=== PATIENT | male | born 1975 | race Caucasian/White ===

== ENCOUNTER 2017-11-24 00:21 | Inpatient (IN) | payer BC ==
[2017-11-24 01:37] LABS: #Basophils 0.1 thou/uL (0.0-0.2); #Eosinphils 0.1 thou/uL (0.0-0.7); #Lymphocytes 2.4 thou/uL (1.20-3.40); #Monocytes 0.8 thou/uL (0.11-0.59); #Neutrophils 10.9 thou/uL (1.40-6.50); %Basophils 0.6 % (0.0-1.0); %Eosinophils 0.4 % (0.0-10.0); %Lymphocytes 16.5 % (21.0-51.0); %Monocytes 5.9 % (0.0-10.0); %Neutrophils 76.6 % (42.0-75.0); Hemoglobin 15.5 g/dL (14.0-18.0); Mean Corpuscular HGB CONC 32.6 g/dL (32.0-36.0); Platelet Count 350 thou/uL (130-400); RBC Distribution Width 11.6 % (11.5-14.5); Red Blood Cell (RBC) Count 5.02 mill/uL (4.70-6.10); White Blood Cell (WBC) Count 14.2 thou/uL (4.8-10.8)
--- NOTE | 2017-11-24 01:51 | PDOC.FPRHP ---
- History of Present Illness Chief Complaint: DKA History of Present Illness: Mr Rush is a 41yo male with pmh of DMI presenting from [place] ED with DKA. He was seen by a ASSOCIATE PROFESSOR OF PHYSICS at his PCPs office on Tuesday for sore throat and was diagnosed with strep throat by throat swab. He was given amoxicillin. Later developed fever of 101. Began having fatigue, FRANCIS, vision changes, nausea, 1 episode of vomiting, decreased urination and fast breathing. His friend who is an RN recognized his quick labored breathing and recommended he seek medical attention. He uses Novolog 25-30U TID before meals, does not use long acting insulin. Blood sugar usually runs 200-250. Missed one dose of insulin yesterday but reports compliance otherwise. Has never been hospitalized for DKA before. Multiple family members with DMI. ED Course: [place] ED: 3L NS, Vanc 1g, Zosyn 4.5g, Novolin 8U [facility] ED: insulin gtt - Allergies/Adverse Reactions Allergies Allergy/AdvReac Type Severity Reaction Status Date / Time No Known Drug Allergies Allergy Verified 11/24/17 02:19 - Home Medications Medication Instructions Recorded Confirmed Type Insulin Aspart [Novolog Flexpen] 25 units SQ TID 11/24/17 11/24/17 History - History PMHx: DMI PSHx: None FHx: DMI- father, grandfather, uncle Social: Uses chewing tobacco, occasional alcohol use. denies smoking or drug use. - Review of Systems General: reports: fever/chills, fatigue. denies: weight/appetite/sleep changes Eyes: reports: vision changes. denies: eye pain ENT: denies: nasal congestion, rhinorrhea Respiratory: denies: cough, congestion, shortness of breath Cardiovascular: denies: chest pain, palpitation Gastrointestinal: reports: nausea, vomiting. denies: diarrhea, constipation, abdominal pain Genitourinary: reports: other (decreased urination). denies: polyuria Skin: denies: rashes, lesions Musculoskeletal: denies: pain, stiffness Neurological: denies: numbness, syncope, weakness - Vital signs BP: 143/91 HR: 99 RR: 18 Tmax: 98 Pox: 100% on RA Wt: 88.4kg - Physical Exam Constitutional: NAD, awake, alert and oriented, well developed HEENT: normocephalic and atraumatic, PERRLA, oropharynx clear (Pt has chewing tobacco in. Dry MM. Erythematous pharynx) Neck: supple, trachea midline, no LAD Heart: RRR, no murmurs/rubs/gallops Lungs: CTAB, no respiratory distress, no wheezing Abdomen: soft, non-tender, bowel sounds present Musculoskeletal: normal structure, normal tone Neurological: no focal deficit Skin: no rash/lesions, other (delayed cap refill) Psychiatric: normal mood and affect, good judgment and insight, intact recent and remote memory FMR H&P: Results - Labs Result Diagrams: 11/24/17 01:25 11/24/17 03:48 Lab results: WBC 14.2 thou/uL (4.8-10.8) H 11/24/17 01:25 Hgb 15.5 g/dL (14.0-18.0) 11/24/17 01:25 Hct 47.7 % (42.0-52.0) 11/24/17 01:25 MCV 95.0 fL (78.0-98.0) 11/24/17 01:25 Plt Count 350 thou/uL (130-400) 11/24/17 01:25 Neutrophils % 76.6 % (42.0-75.0) H 11/24/17 01:25 - EKG Interpretation EKG: Sinus tachycardia with unifocal PVCs FMR H&P: A/P - Problem List (1) DKA (diabetic ketoacidoses) Current Visit: Yes Status: Acute Code(s): E13.10 - OTH DIABETES MELLITUS WITH KETOACIDOSIS WITHOUT COMA (2) Type 1 diabetes mellitus Current Visit: Yes Status: Acute (3) Tobacco abuse Current Visit: Yes Status: Chronic Code(s): Z72.0 - TOBACCO USE - Plan DKA - Likely 2/2 infection and missed dose insulin - Initial Anion gap of 30, repeat labs 22 - Beta-hydroxybutyrate: 7.26 - DKA protocol, continue insulin gtt until anion gap has closed - Lactic acid elevated 2.7, will repeat this and Phos with next labs - q4h BMP - Was only on short acting insulin prior to admission, will need to adjust home meds by start long acting insulin prior to discharge - Diabetes education prior to d/c - NPO - Admit to IMCU Dehydration 2/2 DKA - IVF per DKA protocol - Monitor Urine output with strict I&Os Strep Pharyngitis - Pt reports positive rapid strep at PCP office treated with Amoxicillin - Vanc & Zosyn started at outside ED - Will continue Zosyn and d/c Vanc - Blood cultures pending Hyperkalemia - Secondary to DKA - Will replace to maintain K between 4-5 Leukocytosis - Likely acute reaction to DKA DAWOOD - Continue IVF - Continue to monitor DMI - Manage as above Tobacco Abuse - Encourage cessation Code Status: FULL DVT ppx: lovenox FMR H&P: Upper Level - Pertinent history 41 y/o M presents as a TXR from [place] ER for evaluation of fast breathing that started yesterday and has been worsening. Reportedly seen by PCP w/ positive strep swab and started on Amoxicillin at this time. Pt states he spoke with a friend who is an RN who urged him to go to the ER for futher evaluation. Pt reports hx of T1DM on novolog 25-30 U TID-AC w/ recent BG running 150-250s at home. Reports that he developed some nausea and vomiting earlier today before coming in to the ER, but denies any significant polyuria or abdominal pain at this time. At [place] ER, patient was found to have an AGMA w/ significant ketonuria concerning for likely DKA. He was started on insulin drip at 8 mg/hr and given 3L of NS. He was also started on Vancomycin and Zosyn for empiric coverage of his strep pharyngitis which was felt to be the likely etiology of his DKA. Pt reports only missing one dose of insulin earlier today, but w/ sxs starting before this time. Denies any prior episodes of DKA. Denies any sore throat or fevers. - Pertinent findings BP 143/91 P: 99 RR 18 TMax: 98.0 DegF OsSat 100% on RA WBC 17.1 Hgb 17.3 Na 137 K 4.1 Cl - 107 CO2 - <8 BUN 11 Cr 1.25 Gluc 212 Phos 5.4 B-hb 7.26 U/A - Tr blood, >80 ketones, 30 protein CXR NAD GEN: NAD, resting in bed comfortably HEENT: Dry MM, poor dentition, normocephalic CARDS: Tachycardic, no murmur, rubs or gallops PULM: CTA-B/L, no wheezes, rales or rhonci GI: BSx4, soft, non-TTP, no rigidity or rebound tenderness NEURO: CN 2-12 intact b/l w/o focal deficits Skin Increased skin turgor and increased cap refill >2 seconds - Plan Date/Time: 11/24/17 0151 IMalathi MD, have evaluated this patient and agree with findings/plan as outlined by diversity intern resident. Pertinent changes/additions are listed here. 41 year old M w/: 1) Diabetic Ketoacidosis - Pt w/ repeat labs w/ stable potassium after being on insulin gtt at 8 mg/Hr for approx. 4-5 hours. Anion gap remains elevated at 22 and Serum bicarb now < 8. Will plan to admit to IMCU on DKA protocol w/ patient NPO and q4 hr BMPs to monitor for resolution of DKA w/ closed anion gap (<12) and serum bicarbonate 16 -18. Once this is achieved, patient will be given SQ long acting insulin and allowed to eat a CC diet. Insulin gtt will subsequently be turned off in 1-2 hours after this. Patient confirmed he has [employer] insurance and will plan to transition him back on to long acting insulin during this hospitalization for improved control of his T1DM in hopes to prevent future episodes of DKA. - Serum potassium 4.1. Will give 20 mEq w/ each liter of IVF to maintain serum K between 4-5 - Repeat serum glucose 212, patient will likely need to be transitioned to D5NS to maintain BG levels while correcting insulin deficit - Etiology likely combination of infection w/ some medication non-compliance - Will consult case management for diabetes education and OOH resources - Lactic acid elevated at 2.7, will plan to repeat on next set of labs - Repeat Phos 2) Strep Pharyngitis - Reported positive rapid strep in the outpatient setting - Likely contributing to patient developing #1. Will continue w/ Zosyn started in outside ER in for strep coverage. D/C Vancomycin as I do not feel staph is a likely etiology of patients pharyngitis w/ positive rapid strep in the outpatient setting - Will obtain blood cultures to r/o presence of bacteremia in the setting of leukocytosis and elevated lactic acid. However, these are likely due to stress response and dehydration from #1. 3) Likely DAWOOD - Cont. w/ IVF resuscitation. Unsure of baseline as patient does not have prior labs to reference. No endorses hx of renal disease. Will cont. to monitor. 4) Moderate dehydration - IVF per #1, will monitor fluid status w/ strict I/Os Code Status: Full Code LOS: >2 midnights Diet: NPO Assessment and Plan discussed w/ Dr. Jaleel Calixto who is in agreement Attending Addendum - Attending Addendum Date/Time: 11/24/17 0130 I personally evaluated the patient and discussed the management with Dr. Lane /Dayanna. I agree with the History, Examination, Assessment and Plan documented above with any addition or exceptions noted below. Please see dictated H&P for further details.
[2017-11-24 01:58] LABS: ALT (SGPT) 8 U/L (8-55); AST (SGOT) 7 U/L (5-34); Alkaline Phosphatase 83 U/L (40-150); BUN (Urea Nitrogen) 11 mg/dL (8.9-20.6); Bilirubin, Total 0.2 mg/dL (0.2-1.2); Calc. Creatinine Clearance 0 mL/min (70-130); Calcium 8.6 mg/dL (7.8-10.44); Chloride 107 mmol/L (98-107); Estimated GFR-MDRD 64; Globulin 3.5 g/dL (2.4-3.5); Glucose 212 mg/dL (70-105); Magnesium 1.9 mg/dL (1.6-2.6); Potassium 4.1 mmol/L (3.5-5.1); Protein, Total 7.5 g/dL (6.0-8.3); Sodium 137 mmol/L (136-145)
[2017-11-24 02:01] LABS: Carbon Dioxide Less than 8 mmol/L (22-29)
--- NOTE | 2017-11-24 02:56 | HP ---
ADMISSION HISTORY AND PHYSICAL DATE OF ADMISSION: 11/24/2017 TIME OF ADMISSION: 0130. HISTORY OF PRESENT ILLNESS: This is attending history and physical for the patient, Duran Rush. For full history and physical details, please see the electronic history and physical as noted by Dr. Kirstin Lane. Portions of the history and physical have been repeated by myself and I am in agreement with the assessment and plan as documented. 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 The patient reports that on Tuesday he was seen by a nurse practitioner at his PCP's office due to sore throat and fevers and was diagnosed with strep throat at that time. He has been on antibiotic treatment since then for that. Over the last couple of days, patient has had increased respiratory effort as well as decreased urination, abdominal pain, nausea. He otherwise denies headache, current sore throat, nasal congestion, runny nose, productive cough, chest pain, palpitations, dysuria, skin lesions. Patient reports that his biggest complaint was the increased respiratory effort and that he initially decided to present to the ER after one of his friends noted how hard he was breathing. Upon arrival to [place], patient was noted to be in DKA upon lab review. He was given 3 liters of normal saline fluids as well as started on IV insulin. He was also given vancomycin and Zosyn due to elevated white blood cell count. PHYSICAL EXAMINATION: VITAL SIGNS: At the time of my exam, the patient was noted to be febrile. Pulse was low 100s, blood pressure 143/91, respirations 18, oxygen saturations 100% on room air. GENERAL: The patient is alert, oriented x4, in no apparent distress. The patient is not noted to be in any respiratory distress at this time. HEENT: Conjunctivae clear. Oropharynx clear. Minor erythema noted in the posterior oropharynx. NECK: Supple, without lymphadenopathy. LUNGS: Clear to auscultation bilaterally. CARDIAC: Mild tachycardia, regular rhythm. ABDOMEN: Soft, nontender to palpation. Bowel sounds present x4 quadrants. EXTREMITIES: No clubbing, cyanosis or edema. Increased skin turgor and decreased capillary refill noted. LABORATORY DATA AND X-RAY FINDINGS: Repeat labs at the time of arrival to this institution reveal a: 1. CBC: White blood cell count 14.2, H&H 15.5 and 47.7, platelet count 350, 76 % neutrophils. 2. BMP: Sodium 137, potassium 4.1, chloride 107, bicarbonate less than 8, BUN 11, creatinine 1.25, and glucose 212. 3. LFTs were within normal limits. 4. Labs from the outside hospital were reviewed, and it does appear that the interventions made at the outside ER have resulted in improvement in his overall metabolic derangements. A serum beta hydroxybutyrate and arterial blood gas are currently pending. 5. Chest x-ray obtained at the outside ER showed no acute intrathoracic process. ASSESSMENT AND PLAN: A 41-year-old male with history of type 1 diabetes presenting with diabetic ketoacidosis. 1. Diabetic ketoacidosis, likely secondary to a combination of mild medication noncompliance and strep pharyngitis. The patient will be admitted to the [facility] and placed on diabetic ketoacidosis protocol. The patient will be continued on IV fluids, IV insulin as well as a potassium repletion as needed. Repeat labs after 3 liters of fluids and 4 hours of IV insulin showed that a bicarb is still profoundly low, and we are awaiting the results of an arterial blood gas. He is currently maintaining oxygenation and ventilation as it appears, and I do not anticipate at this time this patient will need intubation. Continue to monitor last q.4 hours with Accu-Cheks q.1 hour. Adjust insulin drip as needed. Due to his current glucose level, I anticipate it will not be long before we will need to add some sort of dextrose containing fluids to prevent hypoglycemia. I anticipate that he will be on the insulin drip for a prolonged period as his gap is still close to 30 with profound metabolic acidosis. Of note, patient reports that he is only currently taking short-acting insulin. Once the diabetic ketoacidosis is resolved, we will reinstitute long-acting insulin in addition to a sliding scale that he will be able to use upon discharge for better control of his diabetes. 2. Strep pharyngitis. Per the patient, this was confirmed in the clinic with a rapid strep test. There, he currently has no other evidence of major infection. We will continue the patient on Zosyn at the current time and trend lab values. Need to ensure that blood cultures were obtained at the outside hospital, and if they were not, we will need to collect those here. 3. Mild acute kidney injury, this currently appears resolved and is secondary to diabetic ketoacidosis above. Continue to trend renal labs throughout hospitalization. 4. Medication noncompliance. The patient reports that he only takes a short- acting insulin and does not routinely check his blood sugars. We will adjust home regimen prior to discharge to include long-acting insulin as well as regular type insulin. We will need to get diabetic education as well as dietary advice while here in the hospital. DISPOSITION: Anticipate patient will be able to discharge home, but anticipate length of this hospitalization would be greater than 2 days due to severe metabolic derangements. 35 minutes critical care time provided in the stabilization and treatment of this patient. JOSED
[2017-11-24] MEDS ORDERED: Dextrose 5% in Water 1,000 ML IV PRN ×2 (03:01→10:29)
[2017-11-24] MEDS ORDERED: Dextrose 50% Abboject 50 ML SYRINGE SLOW IVP PRN ×2 (03:01→10:29)
[2017-11-24] MEDS ORDERED: D5 1/2 NS w/20 mEq KCL 1,000 ML IV PRN (03:01)
[2017-11-24] MEDS ORDERED: Sodium Chloride 0.9% 1,000 ML IV PRN ×8 (03:01→03:35)
[2017-11-24] MEDS ORDERED: Dextrose 5 %-0.45 % NaCl 1,000 ML IV PRN ×2 (03:01→03:35)
[2017-11-24] MEDS ORDERED: NS 0.9% w/ 20 MEQ KCL 1,000 ML/1,000 ML BAG IV PRN ×2 (03:01)
[2017-11-24] MEDS ORDERED: CCU ELECTROLYTE REPLACEMENT PROTOCOL FS PRN ×2 (03:02→03:44)
[2017-11-24] MEDS ORDERED: Potassium Phosphate 15 MMOL in Sodium Chloride 0.9% 250 ML 250 ML IV PRN ×2 (03:02→03:44)
[2017-11-24] MEDS ORDERED: Potassium Chloride 20 MEQ TAB PO PRN ×2 (03:02→03:44)
[2017-11-24] MEDS ORDERED: Potassium Phosphate 9 MMOL in Sodium Chloride 0.9% 100 ML IVPB PRN ×2 (03:02→03:44)
[2017-11-24] MEDS ORDERED: Magnesium 2 GM/NS 0.9% 100 ML 2 GM in Premix Bag 1 BAG IVPB PRN ×2 (03:02→03:44)
[2017-11-24] MEDS ORDERED: Potassium Chloride 40 MEQ in Sodium Chloride 0.9% 250 ML 250 ML IVPB PRN ×2 (03:02→03:44)
[2017-11-24] MEDS ORDERED: Potassium Phosphate 12 MMOL in Sodium Chloride 0.9% 250 ML 250 ML IV PRN ×2 (03:02→03:44)
[2017-11-24] MEDS ORDERED: Magnesium Oxide 400 MG TAB PO PRN ×4 (03:02→03:44)
[2017-11-24] MEDS ORDERED: Potassium Chloride 40 MEQ in Premix Bag 1 BAG IVPB PRN ×2 (03:02→03:44)
[2017-11-24] MEDS ORDERED: ADD ELECTROLYTE REPLACEMENT SET TO PROFILE FS SCH (03:15)
[2017-11-24] MEDS ORDERED: CCU Electrolyte Replacement 1 EACH IVPB ONE (03:35)
[2017-11-24] MEDS ORDERED: NS 0.9% w/ 20 MEQ KCL 1,000 ML IV PRN ×2 (03:35)
[2017-11-24] MEDS ORDERED: Ondansetron ODT 4 MG TAB PO PRN (03:35)
[2017-11-24 04:53] LABS: Anion Gap 22 mmol/L (10-20); BUN (Urea Nitrogen) 10 mg/dL (8.9-20.6); Calc. Creatinine Clearance 109 mL/min (70-130); Calcium 8.1 mg/dL (7.8-10.44); Chloride 108 mmol/L (98-107); Estimated GFR-MDRD 71; Glucose 169 mg/dL (70-105); Potassium 3.8 mmol/L (3.5-5.1); Sodium 135 mmol/L (136-145)
[2017-11-24 04:56] LABS: Carbon Dioxide 9 mmol/L (22-29)
[2017-11-24 05:12] LABS: Lactic Acid 1.7 mmol/L (0.5-2.2)
[2017-11-24] MEDS: D5 1/2 NS w/20 mEq KCL 1,000 ML IV PRN ×2 (05:21→08:59)
[2017-11-24] MEDS ORDERED: Piperacillin/Tazobactam 3.375 GM in Sodium Chloride 0.9% 100 ML IVPB SCH (06:00)
[2017-11-24 07:57] LABS: Anion Gap 14 mmol/L (10-20); BUN (Urea Nitrogen) 8 mg/dL (8.9-20.6); Calc. Creatinine Clearance 126 mL/min (70-130); Calcium 7.8 mg/dL (7.8-10.44); Carbon Dioxide 15 mmol/L (22-29); Chloride 111 mmol/L (98-107); Estimated GFR-MDRD 83; Glucose 169 mg/dL (70-105); Potassium 3.6 mmol/L (3.5-5.1); Sodium 136 mmol/L (136-145)
--- NOTE | 2017-11-24 08:13 | PDOC.EVN ---
Event Note - Event Note Event Note: GAp to 14 Will initiate lantus, patients daily insulin was about 90 of short acting Will start at 45U lantus Diabetic diet Cont fluids, insulin for 2 hours after initiating lantus
[2017-11-24] MEDS: Insulin Glargine 45 UNITS in Pre-Filled Syringe 1 EACH SC SCH (08:50)
[2017-11-24] MEDS: Enoxaparin Sodium 40 MG/0.4 ML SYRINGE SC SCH (08:51)
[2017-11-24] MEDS ORDERED: HumaLOG 300 UNITS/3 ML VIAL SC PRN (10:29)
--- NOTE | 2017-11-24 10:34 | PDOC.EVN ---
Event Note - Event Note Event Note: Patient diagnosed with strep in clinic yesterday Got Vanc+Zosyn in ED Stopped Zosyn started Augmentin
[2017-11-24 11:58] LABS: Anion Gap 12 mmol/L (10-20); BUN (Urea Nitrogen) 6 mg/dL (8.9-20.6); Calc. Creatinine Clearance 126 mL/min (70-130); Carbon Dioxide 17 mmol/L (22-29); Chloride 108 mmol/L (98-107); Estimated GFR-MDRD 83; Glucose 245 mg/dL (70-105); Phosphorus 1.4 mg/dL (2.3-4.7); Potassium 3.4 mmol/L (3.5-5.1); Sodium 134 mmol/L (136-145)
[2017-11-24] MEDS ORDERED: HumaLOG 300 UNITS/3 ML VIAL SC SCH ×2 (12:00→17:00)
[2017-11-24 14:50] VITALS: BMI 26.2
[2017-11-24 17:46] LABS: Anion Gap 14 mmol/L (10-20); BUN (Urea Nitrogen) 7 mg/dL (8.9-20.6); Calc. Creatinine Clearance 128 mL/min (70-130); Calcium 8.6 mg/dL (7.8-10.44); Carbon Dioxide 18 mmol/L (22-29); Chloride 108 mmol/L (98-107); Estimated GFR-MDRD 85; Glucose 221 mg/dL (70-105); Sodium 136 mmol/L (136-145)
[2017-11-24] MEDS: Potassium Chloride 20 MEQ TAB PO SCH (18:01)
[2017-11-24] MEDS: Amoxicillin/Potassium Clav 875 MG TAB PO SCH ×2 (18:01→20:28)
[2017-11-24] MEDS ORDERED: Melatonin 3 MG TAB PO PRN (19:59)
[2017-11-25] MEDS ORDERED: HumaLOG 300 UNITS/3 ML VIAL SC SCH (08:00)
[2017-11-25] MEDS: Amoxicillin/Potassium Clav 875 MG TAB PO SCH (08:39)
[2017-11-25] MEDS: Potassium Chloride 20 MEQ TAB PO SCH (08:39)
[2017-11-25] MEDS: Enoxaparin Sodium 40 MG/0.4 ML SYRINGE SC SCH (08:39)
[2017-11-25] MEDS: Insulin Glargine 45 UNITS in Pre-Filled Syringe 1 EACH SC SCH (10:45)
--- NOTE | 2017-11-25 11:04 | DIS-2 ---
DATE OF ADMISSION: 11/24/2017 DATE OF DISCHARGE: 11/25/2017 RESIDENT: Dr. Juan Costa ADMITTING ATTENDING: Jaleel Calixto M.D. DISCHARGE ATTENDING: Jaleel Calixto M.D. CONSULTATIONS: None. PROCEDURES: None. PRIMARY DIAGNOSIS: Diabetic ketoacidosis. SECONDARY DIAGNOSIS: Type 1 diabetes mellitus. DISCHARGE MEDICATIONS: Lantus 45 units daily, Humalog 15 units t.i.d. with meals plus aggressive sli ding scale as described to the patient. Amoxicillin 500 mg b.i.d. for 5 days as prescribed by Clinic . DISCONTINUED MEDICATIONS: None. HISTORY OF PRESENT ILLNESS AND HOSPITAL COURSE: This is a 41-year-old male who came into the hospita after "feeling malaise." He has a friend who is a nurse who noticed that he was breathing rapidly and knew he was a type 1 diabetic, so told him to go into the ER to be evaluated. The patient was fo und to be in DKA with a bicarb of less than 8. Beta hydroxybutyrate was 7.6. The patient was starte d on an insulin drip and DKA protocol. The patient's gap resolved over the course about 10-12 hours, and he was started on long-acting insulin. He was treated for a strep throat infection a day prior to this all starting. The patient had not been on long-acting insulin for a few years. He states th at he just stopped because he felt like he could control it with his short acting, I am not sure if h e was instructed to or not by a provider. I discussed the importance of long-acting insulin, the pat ielevon says he understands. It is suspected that the patient was riding with uncontrolled type 1 diabe nancy for some time and this infection just put him over the edge to go into DKA. The patient is disch arged home with long-acting insulin. He is instructed to write down his sugars 3 times daily and to bring them to his primary care provider's office so that his insulin can be titrated correctly. DISPOSITION: Stable. DISCHARGE INSTRUCTIONS: 1. Location: Home. 2. Diet: Diabetic, consistent carbohydrates. 3. Activity: As tolerated. 4. Followup: Follow up with Dr. Calixto 3 days. The patient's insulin regimen will need to be tit rated some as I am sure the food he eats at home are different than the foods in the hospital. Amy back on 45 of Lantus every morning with 15 of Humalog at each meal plus aggressive sliding scale.
[2017-11-25 13:06] VITALS: BP 115/73; TEMP 98.2
[2017-11-25 13:17] LABS: Anion Gap 16 mmol/L (10-20); BUN (Urea Nitrogen) 5 mg/dL (8.9-20.6); Calc. Creatinine Clearance 161 mL/min (70-130); Calcium 8.6 mg/dL (7.8-10.44); Carbon Dioxide 19 mmol/L (22-29); Chloride 105 mmol/L (98-107); Estimated GFR-MDRD Greater than 90; Glucose 172 mg/dL (70-105); Potassium 3.6 mmol/L (3.5-5.1); Sodium 136 mmol/L (136-145)
== END 2017-11-25 11:11 | disposition home or self-care (01) | DRG 638 ==
LOC: ERS 00:21 → IMCU/EMU 01:10 → T4-A 13:59
PROVIDERS: ADMIT Student in an Organized Health Care Education/Training Program; ATTEND Student in an Organized Health Care Education/Training Program
DX: E10.10 Type 1 diabetes mellitus with ketoacidosis without coma (principal); N17.9 Acute kidney failure, unspecified; Z79.4 Long term (current) use of insulin; J02.0 Streptococcal pharyngitis; Z91.14 Patient's other noncompliance with medication regimen; F17.210 Nicotine dependence, cigarettes, uncomplicated; E87.5 Hyperkalemia; E86.0 Dehydration
CPT/HCPCS: 36415; 36416; 80048; 80053; 82010; 83605; 83735; 84100; 85025; 87040; 99285; J1650; J2543; J7050

== ENCOUNTER 2021-05-03 11:56 | Inpatient (IN) | payer BC ==
[2021-05-03] MEDS ORDERED: Fentanyl 100 MCG/2 ML VIAL ONE (12:39)
[2021-05-03 12:49] LABS: #Lymphocytes 1.4 thou/uL (1.20-3.40); #Monocytes 1.3 thou/uL (0.11-0.59); #Neutrophils 15.5 thou/uL (1.40-6.50); %Basophils 0.1 % (0.0-1.0); %Eosinophils 0.1 % (0.0-10.0); %Lymphocytes 7.7 % (21.0-51.0); %Neutrophils 85.2 % (42.0-75.0); Hemoglobin 16.4 g/dL (14.0-18.0); Mean Corpuscular HGB CONC 33.3 g/dL (32.0-36.0); Mean Corpuscular Volume 96.2 fL (78.0-98.0); Mean Platelet Volume 6.9 fL (7.4-10.4); Platelet Count 325 thou/uL (130-400); RBC Distribution Width 11.2 % (11.5-14.5); Red Blood Cell (RBC) Count 5.13 mill/uL (4.70-6.10); White Blood Cell (WBC) Count 18.2 thou/uL (4.8-10.8)
[2021-05-03 12:52] LABS: Bilirubin Negative (Negative); Blood, Urine Negative (Negative); Clarity Clear (Clear); Glucose, Urine (Dipstick) Greater than 1000 mg/dL (Negative); Ketone, Urine Greater than 150 mg/dL (Negative); Leukocyte Negative Leu/uL (Negative); Nitrite Negative (Negative); Protein, Urine (Dipstick) Negative (Neg-Trace); Specific Gravity, Urine 1.049 (1.002-1.036); Urobilinogen Normal mg/dL (Less than 2)
[2021-05-03 13:15] LABS: ALT (SGPT) 72 U/L (8-55); AST (SGOT) 92 U/L (5-34); Albumin 3.9 g/dL (3.5-5.0); Alkaline Phosphatase 129 U/L (40-110); Anion Gap 23 mmol/L (10-20); BUN (Urea Nitrogen) 12 mg/dL (8.9-20.6); Bilirubin, Total 1.3 mg/dL (0.2-1.2); CK (CPK) 29 U/L (30-200); Calc. Creatinine Clearance 0 mL/min (70-130); Calcium 8.8 mg/dL (7.8-10.44); Carbon Dioxide 15 mmol/L (22-29); Chloride 99 mmol/L (98-107); Globulin 3.1 g/dL (2.4-3.5); Glucose 239 mg/dL (70-105); Lipase Less than 4 U/L (8-78); Potassium 5.4 mmol/L (3.5-5.1); Sodium 132 mmol/L (136-145)
[2021-05-03] MEDS ORDERED: INSULIN REGULAR IN 0.9 % NACL 100 UNIT/100 ML BAG ONE (13:56)
[2021-05-03] MEDS ORDERED: Cefepime 2 GM VIAL ONE (13:57)
[2021-05-03] MEDS ORDERED: Sodium Chloride 0.9% 1,000 ML IV PRN ×4 (14:24)
[2021-05-03] MEDS ORDERED: Electrolyte Replacement Protocol 1 EACH IVPB PRN (14:24)
[2021-05-03] MEDS ORDERED: NS 0.9% w/ 20 MEQ KCL 1,000 ML IV PRN ×2 (14:24)
[2021-05-03] MEDS ORDERED: Dextrose 5 %-0.45 % NaCl 1,000 ML IV PRN (14:24)
[2021-05-03] MEDS ORDERED: Ondansetron ODT 4 MG TAB PO PRN (14:27)
[2021-05-03] MEDS ORDERED: Ondansetron PF 4 MG/2 ML Vial IVP PRN (14:27)
[2021-05-03] MEDS ORDERED: Morphine 2 MG/ML VIAL SLOW IVP PRN (14:30)
[2021-05-03] MEDS ORDERED: HUMULIN R 100 UNITS in Sodium Chloride 0.9% 100 ML IVPB SCH (14:30)
[2021-05-03 15:26] LABS: Anion Gap 20 mmol/L (10-20); BUN (Urea Nitrogen) 10 mg/dL (8.9-20.6); Calc. Creatinine Clearance 0 mL/min (70-130); Calcium 8.9 mg/dL (7.8-10.44); Carbon Dioxide 21 mmol/L (22-29); Chloride 99 mmol/L (98-107); Glucose 208 mg/dL (70-105); Magnesium 1.7 mg/dL (1.6-2.6); Potassium 4.6 mmol/L (3.5-5.1); Sodium 135 mmol/L (136-145)
[2021-05-03] MEDS ORDERED: Morphine 4 MG/ML VIAL SLOW IVP PRN (16:15)
[2021-05-03 16:52] VITALS: BMI 25.0
[2021-05-03] MEDS ORDERED: Morphine 4 MG/ML VIAL SLOW IVP SCH (17:00)
[2021-05-03] MEDS: Piperacillin/Tazobactam 3.375 GM in Sodium Chloride 0.9% 100 ML IVPB SCH (18:55)
[2021-05-03 19:08] LABS: Anion Gap 14 mmol/L (10-20); BUN (Urea Nitrogen) 8 mg/dL (8.9-20.6); Calc. Creatinine Clearance 190 mL/min (70-130); Calcium 7.8 mg/dL (7.8-10.44); Carbon Dioxide 18 mmol/L (22-29); Chloride 105 mmol/L (98-107); Glucose 179 mg/dL (70-105); Potassium 4.2 mmol/L (3.5-5.1); Sodium 133 mmol/L (136-145)
[2021-05-03] MEDS ORDERED: Magnesium 2 GM/50 ML 2 GM in Premix Bag 1 BAG IVPB SCH (20:15)
[2021-05-03] MEDS: Pantoprazole 40 MG VIAL IVP SCH (20:29)
[2021-05-03] MEDS: Morphine 4 MG/ML VIAL SLOW IVP PRN (20:30)
[2021-05-03] MEDS: D5 1/2 NS w/20 mEq KCL 1,000 ML IV PRN ×2 (20:40→23:38)
[2021-05-03] MEDS ORDERED: Acetaminophen 500 MG TAB PO PRN (20:47)
[2021-05-03 22:07] LABS: SARS-CoV-2 NAA Rapid Test Not Detected (NotDetected)
[2021-05-03 23:04] LABS: Anion Gap 13 mmol/L (10-20); BUN (Urea Nitrogen) 8 mg/dL (8.9-20.6); Calc. Creatinine Clearance 175 mL/min (70-130); Calcium 8.7 mg/dL (7.8-10.44); Carbon Dioxide 22 mmol/L (22-29); Chloride 100 mmol/L (98-107); Glucose 171 mg/dL (70-105); Potassium 4.3 mmol/L (3.5-5.1); Sodium 131 mmol/L (136-145)
[2021-05-04] MEDS: Piperacillin/Tazobactam 3.375 GM in Sodium Chloride 0.9% 100 ML IVPB SCH ×3 (00:54→16:59)
[2021-05-04] MEDS: Morphine 4 MG/ML VIAL SLOW IVP PRN ×4 (01:02→21:16)
[2021-05-04] MEDS: D5 1/2 NS w/20 mEq KCL 1,000 ML IV PRN (03:38)
[2021-05-04 04:12] LABS: ALT (SGPT) 184 U/L (8-55); AST (SGOT) 347 U/L (5-34); Albumin 3.1 g/dL (3.5-5.0); Alkaline Phosphatase 179 U/L (40-110); Anion Gap 14 mmol/L (10-20); BUN (Urea Nitrogen) 6 mg/dL (8.9-20.6); Bilirubin, Direct 0.5 mg/dL (0.1-0.3); Bilirubin, Total 1.5 mg/dL (0.2-1.2); Calc. Creatinine Clearance 199 mL/min (70-130); Calcium 8.2 mg/dL (7.8-10.44); Carbon Dioxide 19 mmol/L (22-29); Chloride 101 mmol/L (98-107); Glucose 173 mg/dL (70-105); Potassium 4.6 mmol/L (3.5-5.1); Protein, Total 6.1 g/dL (6.0-8.3); Sodium 129 mmol/L (136-145)
[2021-05-04] MEDS ORDERED: Dextrose 5% in Water 1,000 ML IV PRN (04:45)
[2021-05-04] MEDS ORDERED: Dextrose 50% Abboject 50 ML SYRINGE SLOW IVP PRN (04:45)
[2021-05-04] MEDS ORDERED: HumaLOG 300 UNITS/3 ML VIAL SC PRN (04:45)
[2021-05-04] MEDS ORDERED: Lantus 1000 UNITS/10 ML VIAL SC SCH (05:00)
[2021-05-04 08:05] LABS: Hemoglobin 15.5 g/dL (14.0-18.0); Mean Corpuscular HGB CONC 31.7 g/dL (32.0-36.0); Mean Corpuscular Hemoglobin 30.5 pg (27.0-31.0); Mean Corpuscular Volume 96.2 fL (78.0-98.0); Mean Platelet Volume 6.8 fL (7.4-10.4); Platelet Count 309 thou/uL (130-400); RBC Distribution Width 11.3 % (11.5-14.5); White Blood Cell (WBC) Count 21.5 thou/uL (4.8-10.8)
[2021-05-04] MEDS: Pantoprazole 40 MG VIAL IVP SCH ×2 (08:50→21:17)
[2021-05-04 11:36] LABS: Band 10 % (5-11); Lymphocytes 6 % (21-51); MDiff Complete? YES; Monocytes 14 % (0-10); Neutrophil 70 % (42-75); Platelet Morphology Comment Appears Adequate; RBC Morphology Normal
[2021-05-04] MEDS ORDERED: Morphine 4 MG/ML VIAL ONE (12:03)
[2021-05-04] MEDS: Sodium Chloride 0.9% 1,000 ML IV SCH (16:59)
[2021-05-04] MEDS: HumaLOG 300 UNITS/3 ML VIAL SC PRN (17:06)
[2021-05-04] MEDS: Lantus 1000 UNITS/10 ML VIAL SC SCH (23:05)
[2021-05-05] MEDS: Piperacillin/Tazobactam 3.375 GM in Sodium Chloride 0.9% 100 ML IVPB SCH ×3 (02:10→17:37)
[2021-05-05] MEDS: Morphine 4 MG/ML VIAL SLOW IVP PRN ×3 (02:27→20:18)
[2021-05-05] MEDS: Sodium Chloride 0.9% 1,000 ML IV SCH ×3 (03:36→20:32)
[2021-05-05 06:43] LABS: #Eosinphils 0.2 thou/uL (0.0-0.7); #Lymphocytes 2.2 thou/uL (1.20-3.40); #Monocytes 1.7 thou/uL (0.11-0.59); #Neutrophils 11.2 thou/uL (1.40-6.50); %Basophils 0.1 % (0.0-1.0); %Eosinophils 1.5 % (0.0-10.0); %Lymphocytes 14.5 % (21.0-51.0); %Monocytes 11.1 % (0.0-10.0); %Neutrophils 72.7 % (42.0-75.0); Hemoglobin 13.4 g/dL (14.0-18.0); Mean Corpuscular HGB CONC 32.6 g/dL (32.0-36.0); Mean Corpuscular Hemoglobin 31.4 pg (27.0-31.0); Mean Corpuscular Volume 96.2 fL (78.0-98.0); Mean Platelet Volume 6.9 fL (7.4-10.4); Platelet Count 283 thou/uL (130-400); RBC Distribution Width 11.2 % (11.5-14.5); Red Blood Cell (RBC) Count 4.27 mill/uL (4.70-6.10); White Blood Cell (WBC) Count 15.4 thou/uL (4.8-10.8)
[2021-05-05 06:55] LABS: Anion Gap 16 mmol/L (10-20); BUN (Urea Nitrogen) 17 mg/dL (8.9-20.6); Calc. Creatinine Clearance 162 mL/min (70-130); Calcium 8.6 mg/dL (7.8-10.44); Carbon Dioxide 22 mmol/L (22-29); Chloride 97 mmol/L (98-107); Glucose 190 mg/dL (70-105); Potassium 4.4 mmol/L (3.5-5.1); Sodium 131 mmol/L (136-145)
[2021-05-05 08:03] LABS: Albumin 3.1 g/dL (3.5-5.0)
[2021-05-05 08:06] LABS: Protein, Total 6.2 g/dL (6.0-8.3)
[2021-05-05 08:08] LABS: Bilirubin, Total 1.3 mg/dL (0.2-1.2)
[2021-05-05 08:09] LABS: Alkaline Phosphatase 197 U/L (40-110)
[2021-05-05 08:11] LABS: AST (SGOT) 55 U/L (5-34); Bilirubin, Direct 0.8 mg/dL (0.1-0.3)
[2021-05-05 08:12] LABS: ALT (SGPT) 110 U/L (8-55)
[2021-05-05] MEDS: Pantoprazole 40 MG VIAL IVP SCH ×2 (09:11→20:18)
[2021-05-05 09:21] LABS: INR-International Normal Ratio 1.2; Prothrombin Time 14.9 sec (12.0-14.7)
[2021-05-05] MEDS ORDERED: Lidocaine 1% w/Epinephrine 1:100K 30 ML VIAL ONE (10:15)
[2021-05-05] MEDS ORDERED: Bupivacaine 0.25% 10 ML VIAL ONE ×2 (10:15)
[2021-05-05] MEDS ORDERED: Fentanyl 100 MCG/2 ML VIAL ONE ×3 (12:09→15:19)
[2021-05-05] MEDS ORDERED: Midazolam HCl 2 mg/2 ml Vial ONE (12:09)
[2021-05-05] MEDS ORDERED: HYDROmorphone 0.5 MG/0.5 ML SYRINGE ONE (12:10)
[2021-05-05] MEDS ORDERED: Scopolamine 1.5 mg/72 hour Patch ONE (12:30)
[2021-05-05] MEDS ORDERED: Rocuronium Bromide 10 MG/ML (10ML VIAL) ONE (12:48)
[2021-05-05] MEDS ORDERED: Ketorolac Tromethamine 30 MG/ML VIAL ONE (12:48)
[2021-05-05] MEDS ORDERED: Metoclopramide HCl 10 MG/2 ML VIAL ONE (12:48)
[2021-05-05] MEDS ORDERED: PROPOFOL 200 MG/20 ML VIAL ONE (12:48)
[2021-05-05] MEDS ORDERED: Ondansetron PF 4 MG/2 ML Vial ONE ×2 (12:48→14:46)
[2021-05-05] MEDS ORDERED: Lidocaine 1% PF 5 ML VIAL ONE (12:48)
[2021-05-05] MEDS ORDERED: Dexamethasone 20 MG/5 ML VIAL ONE (12:48)
[2021-05-05] MEDS ORDERED: HYDROmorphone 2 MG/ML VIAL SLOW IVP PRN (13:11)
[2021-05-05] MEDS ORDERED: Promethazine HCl 25 MG/ML VIAL IVPB PRN (13:11)
[2021-05-05] MEDS ORDERED: Promethazine HCl 25 MG/ML VIAL IM PRN (13:11)
[2021-05-05] MEDS ORDERED: Ondansetron HCl/PF 4 MG/2 ML Vial IVP PRN (13:11)
[2021-05-05] MEDS ORDERED: Famotidine/PF 20 mg/2ml Vial ONE (13:43)
[2021-05-05] MEDS ORDERED: SUGAMMADEX SODIUM 200 MG/2 ML VIAL ONE (13:43)
[2021-05-05] MEDS ORDERED: Promethazine HCl 25 MG/ML VIAL ONE (15:02)
[2021-05-05] MEDS ORDERED: Senokot 8.6 MG TAB PO SCH (17:00)
[2021-05-05] MEDS ORDERED: traMADol HCl 50 MG TAB PO PRN ×2 (17:00)
[2021-05-05] MEDS ORDERED: Acetaminophen 500 MG TAB PO SCH (17:02)
[2021-05-05] MEDS: HumaLOG 300 UNITS/3 ML VIAL SC PRN (17:44)
[2021-05-05] MEDS: Lantus 1000 UNITS/10 ML VIAL SC SCH (20:24)
[2021-05-06] MEDS: Piperacillin/Tazobactam 3.375 GM in Sodium Chloride 0.9% 100 ML IVPB SCH ×2 (00:17→08:55)
[2021-05-06] MEDS: Acetaminophen 325 MG TAB PO SCH ×3 (01:17→11:41)
[2021-05-06] MEDS: Morphine 4 MG/ML VIAL SLOW IVP PRN ×2 (01:44→08:54)
[2021-05-06] MEDS: HumaLOG 300 UNITS/3 ML VIAL SC PRN ×2 (05:45→11:39)
[2021-05-06] MEDS: Sodium Chloride 0.9% 1,000 ML IV SCH (05:51)
[2021-05-06 07:56] VITALS: BP 131/81; TEMP 98.7
[2021-05-06] MEDS: Pantoprazole 40 MG VIAL IVP SCH (08:54)
[2021-05-06] MEDS ORDERED: Saccharomyces boulardii 250 MG CAP PO SCH (09:00)
[2021-05-06] MEDS ORDERED: Polyethylene Glycol 3350 17 GM Packet PO SCH (09:00)
[2021-05-06] MEDS ORDERED: Sodium Chloride 0.9% 1,000 ML IV SCH (14:30)
[2021-05-06] MEDS ORDERED: Amoxicillin/Potassium Clav 875 MG TAB PO SCH (21:00)
[2021-05-07] MEDS ORDERED: Lantus 1000 UNITS/10 ML VIAL SC SCH (09:00)
== END 2021-05-06 15:50 | disposition home or self-care (01) | DRG 853 ==
LOC: ERS 11:56 → IMCU/EMU 13:56 → T4-B 05-04 18:32
PROVIDERS: ADMIT Family Medicine; ATTEND Internal Medicine
PROC: 3E03329 Introduction of Other Anti-infective into Peripheral Vein, Percutaneous Approach (ICD-10-PCS; principal; 2021-05-03)
PROC: 0FT44ZZ Resection of Gallbladder, Percutaneous Endoscopic Approach (ICD-10-PCS; 2021-05-05)
DX: A41.9 Sepsis, unspecified organism (principal); E10.10 Type 1 diabetes mellitus with ketoacidosis without coma; K80.00 Calculus of gallbladder with acute cholecystitis without obstruction; Z20.822 Contact with and (suspected) exposure to COVID-19; F17.220 Nicotine dependence, chewing tobacco, uncomplicated; R74.01 Elevation of levels of liver transaminase levels; K52.9 Noninfective gastroenteritis and colitis, unspecified; E86.0 Dehydration; K82.A1 Gangrene of gallbladder in cholecystitis; Z91.14 Patient's other noncompliance with medication regimen; Z79.4 Long term (current) use of insulin
CPT/HCPCS: 36415; 36416; 71045; 76705; 78227; 80048; 81003; 82010; 82550; 83605; 83690; 83735; 83930; 84100; 85025; 85610; 85730; 86850; 86900; 86901; 88304; 93005; 96374; 96375; A9537; C1713; C9113; J0692; J1100; J1170; J1815; J1885; J2250; J2270; J2405; J2543; J2550; J2704; J2765; J3010; J3370; J3475; J3480; J3490; J7030; J7042; J7050; S0020; S0028; U0002